=== PATIENT | male | born 1975 | race Caucasian/White ===

== ENCOUNTER 2018-11-10 15:00 | Emergency (ER) | payer OTHER | END 2018-11-10 17:58 | disposition home or self-care (01) | LOC: ED 15:00 | DX: S00.83XA Contusion of other part of head, initial encounter (principal); V69.49XA Driver of heavy transport vehicle injured in collision with other motor vehicles in traffic accident, initial encounter; Y93.I9 Activity, other involving external motion; Y92.488 Other paved roadways as the place of occurrence of the external cause; Y99.8 Other external cause status ==